=== PATIENT | female | born 1945 | race Caucasian/White ===

== ENCOUNTER 2019-01-30 10:37 | Emergency (ER) | payer MEDICARE ==
[~2019-01-30] VITALS: Ht 152.4 cm; Wt 65.3 kg
[2019-01-30] MEDS ORDERED: BP MED PO (10:46)
[2019-01-30 11:21] LABS: BASOPHILS # (AUTO) 0.1 K/uL (0.0-8.0); BASOPHILS % (AUTO) 0.7 % (0.0-2.0); EOSINOPHILS # (AUTO) 0.1 K/uL (0.0-0.7); EOSINOPHILS % (AUTO) 1.5 % (0.0-7.0); HEMOGLOBIN 12.1 g/dL (10.9-14.3); LYMPHOCYTES % (AUTO) 22.6 % (20.5-51.5); MEAN CORPUSCULAR HEMOGLOBIN 28.8 uug (24.7-32.8); MEAN CORPUSCULAR HGB CONC 34 g/dL (32.3-35.6); MEAN CORPUSCULAR VOLUME 85.7 fL (75.5-95.3); MONOCYTES # (AUTO) 0.9 K/uL (2.0-10.0); MONOCYTES % (AUTO) 10.3 % (0.0-11.0); NEUTROPHILS # (AUTO) 5.7 K/uL (1.8-8.9); NEUTROPHILS % (AUTO) 64.9 % (38.5-71.5); PLATELET COUNT (AUTO) 410 K/uL (179-408); RED BLOOD CELL COUNT(AUTO) 4.19 MIL/uL (3.63-4.92); WHITE BLOOD COUNT (AUTO) 8.8 K/uL (3.8-11.8)
[2019-01-30 11:23] LABS: CARBON DIOXIDE 25 mmol/L (21-32); CHLORIDE 105 mmol/L (98-107); CREATININE 0.6 mg/dL (0.6-1.3); GLUCOSE 142 mg/dL (74-106); POTASSIUM 4.2 mmol/L (3.5-5.1); UREA NITROGEN, BLOOD 12 mg/dL (7-18)
[2019-01-30 11:26] LABS: URIC ACID 5.1 mg/dL (2.6-6.0)
--- NOTE | 2019-01-30 11:30 | NUR ---
PATIENT WAS SEEN BY . XRAYS DONE, LABS DRAWN.
[2019-01-30] MEDS ORDERED: ACETAMINOPHEN ES 500 MG TABLET ONE (12:07)
[2019-01-30] MEDS ORDERED: IBUPROFEN 200 MG TABLET ONE (12:08)
[2019-01-30] MEDS ORDERED: ACETAMINOPHEN 325 MG TABLET PO ONE (12:15)
[2019-01-30] MEDS ORDERED: IBUPROFEN 200 MG TABLET PO ONE (12:15)
--- NOTE | 2019-01-30 12:15 | NUR ---
DC AND FOLLOW UP INSTRUCTIONS GIVEN AND EXPLAINED TO PATIENT WHO STATES SHE UNDERSTANDS ALL INSTRUCTIONS.
== END 2019-01-30 12:22 | disposition home or self-care (01) ==
LOC: ER 10:37
DX: M19.031 Primary osteoarthritis, right wrist (principal); M19.032 Primary osteoarthritis, left wrist; M19.011 Primary osteoarthritis, right shoulder
CPT/HCPCS: 36415; 73030; 73110; 84550; 85025; 85651; A4663; A9150